=== PATIENT | male | born 1985 | race Caucasian/White ===

== ENCOUNTER 2017-03-10 23:20 | Inpatient (IN) | payer OTHER, MEDICAID ==
[~2017-03-10] VITALS: Ht 165.1 cm; Wt 64.5 kg
--- NOTE | 2017-03-11 00:38 | PD ---
HPI Chief Complaint: Psychiatric Symptoms Time Seen by Provider: 00:37 Travel History International Travel<30 days: No Contact w/Intl Traveler<30days: No Traveled to known affect area: No History of Present Illness HPI 31-year-old male with history of PTSD, presents to emergency department under [place] act for psychiatric evaluation. Patient states he got in argument with his brother. He tells me that him and his brother had never gotten along. He made comments that made his parents concerned that he was going to hurt his brother. He states he has no suicidal or homicidal ideations. He states his brother "just annoys him." States that he is supposed be taking his medication for PTSD but does not take it regularly. He took 1 dose yesterday. Denies any illicit drug use. No other symptoms to report at this time. [facility] Past Medical History Diabetes: No Diminished Hearing: Yes (LEFT EAR, STATES " I HAVE A HEARING AID BUT DON'T USE IT") Social History Alcohol Use: No (DRINKS ALCOHOL RARELY) Tobacco Use: No Allergies-Medications (Allergen,Severity, Reaction): Coded Allergies: haloperidol (Verified Allergy, Severe, 03/11/17) DYSTONIC REACTION sulfamethoxazole (Unverified Allergy, Severe, 01/28/17) trimethoprim (Unverified Allergy, Severe, 01/28/17) Reported Meds & Prescriptions Reported Meds & Active Scripts Active No Active Prescriptions or Reported Medications Review of Systems Except as stated in HPI: all other systems reviewed are Neg Physical Exam Narrative GENERAL: Well-nourished male patient, in no acute distress SKIN: Focused skin assessment warm/dry. HEAD: Atraumatic. Normocephalic. EYES: Pupils equal and round. No scleral icterus. No injection or drainage. ENT: No nasal bleeding or discharge. Mucous membranes pink and moist. NECK: Trachea midline. No JVD. CARDIOVASCULAR: Tachycardic rate and rhythm. No murmur appreciated. RESPIRATORY: No accessory muscle use. Clear to auscultation. Breath sounds equal bilaterally. GASTROINTESTINAL: Abdomen soft, non-tender, nondistended. Hepatic and splenic margins not palpable. MUSCULOSKELETAL: No obvious deformities. No clubbing. No cyanosis. No edema. NEUROLOGICAL: Awake and alert. No obvious cranial nerve deficits. Motor grossly within normal limits. Normal speech. Data Data Last Documented VS Vital Signs Date Time Temp Pulse Resp B/P (MAP) Pulse Ox O2 Delivery O2 Flow Rate FiO2 03/11/17 01:11 117 20 134/91 (105) Orders Orders Psych Screen (03/10/17 23:54) Complete Blood Count With Diff (03/11/17 00:38) Basic Metabolic Panel (Bmp) (03/11/17 00:38) Drug Screen, Random Urine (03/11/17 00:38) Alcohol (Ethanol) (03/11/17 00:38) Labs Laboratory Tests Test 03/11/17 00:00 White Blood Count 6.9 TH/MM3 Red Blood Count 4.73 MIL/MM3 Hemoglobin 14.8 GM/DL Hematocrit 43.1 % Mean Corpuscular Volume 91.1 FL Mean Corpuscular Hemoglobin 31.4 PG Mean Corpuscular Hemoglobin Concent 34.4 % Red Cell Distribution Width 12.8 % Platelet Count 246 TH/MM3 Mean Platelet Volume 8.6 FL Neutrophils (%) (Auto) 60.9 % Lymphocytes (%) (Auto) 27.1 % Monocytes (%) (Auto) 10.9 % Eosinophils (%) (Auto) 0.5 % Basophils (%) (Auto) 0.6 % Neutrophils # (Auto) 4.2 TH/MM3 Lymphocytes # (Auto) 1.9 TH/MM3 Monocytes # (Auto) 0.8 TH/MM3 Eosinophils # (Auto) 0.0 TH/MM3 Basophils # (Auto) 0.0 TH/MM3 CBC Comment DIFF FINAL Differential Comment Blood Urea Nitrogen 11 MG/DL Creatinine 1.17 MG/DL Random Glucose 128 MG/DL Calcium Level 9.1 MG/DL Sodium Level 136 MEQ/L Potassium Level 3.0 MEQ/L Chloride Level 101 MEQ/L Carbon Dioxide Level 25.4 MEQ/L Anion Gap 10 MEQ/L Estimat Glomerular Filtration Rate 73 ML/MIN Ethyl Alcohol Level LESS THAN 3 MG/DL MDM Medical Decision Making Medical Screen Exam Complete: Yes Emergency Medical Condition: Yes Medical Record Reviewed: Yes Differential Diagnosis Mood disorder versus personality disorder versus adjustment reaction disorder Narrative Course 31-year-old male presents to emergency department under [place] act for psychiatric evaluation. Patient appears without distress. He is tachycardic initially, but heart rate normalizes by the time I evaluate him. Lab work is without acute concern. Patient does have hypokalemia 3.0. This will be repleted in the emergency department. Patient is medically cleared to undergo psychiatric screening for further evaluation and disposition. Mental health screening discussed with the patient. Psychiatric screen ordered. Diagnosis Primary Impression: Adjustment reaction Qualified Codes: F43.25 - Adjustment disorder with mixed disturbance of emotions and conduct Additional Impression: Hypokalemia Scripts No Active Prescriptions or Reported Meds Condition: Stable Mariela Barron Mar 11, 2017 00:38
[2017-03-11 01:02] LABS: AUTOMATED NEUTROPHIL # 4.2 TH/MM3 (1.8-7.7); BASOPHIL % 0.6 % (0.0-2.0); EOSINOPHIL % 0.5 % (0.0-4.0); HEMATOCRIT 43.1 % (39.0-51.0); HEMO FLAGS DIFF FINAL; LYMPH % 27.1 % (9.0-44.0); LYMPHOCYTE # 1.9 TH/MM3 (1.0-4.8); MEAN CELL VOLUME 91.1 FL (80.0-100.0); MEAN CORPUSCULAR HEMOGLOBIN 31.4 PG (27.0-34.0); MEAN CORPUSCULAR HGB CONC 34.4 % (32.0-36.0); MONO % 10.9 % (0.0-8.0); NEUT % 60.9 % (16.0-70.0); PLATELET COUNT 246 TH/MM3 (150-450); RED BLOOD COUNT 4.73 MIL/MM3 (4.50-5.90); RED CELL DISTRIBUTION WIDTH 12.8 % (11.6-17.2); WHITE BLOOD COUNT 6.9 TH/MM3 (4.0-11.0)
[2017-03-11 01:11] VITALS: BP 134/91; PULSE 117; RESP 20
[2017-03-11 01:20] LABS: ANION GAP 10 MEQ/L (5-15); BICARBONATE 25.4 MEQ/L (21.0-32.0); BLOOD UREA NITROGEN 11 MG/DL (7-18); CHLORIDE 101 MEQ/L (98-107); GLOMERULAR FILTRATION RATE 73 ML/MIN (>89); SODIUM (NA) 136 MEQ/L (136-145)
[2017-03-11 01:38] LABS: ALCOHOL LESS THAN 3 MG/DL (0-5)
[2017-03-11] MEDS ORDERED: POTASSIUM CHLORIDE 10 MEQ CONTROLLED RELEASE TAB PO ONE (05:30)
[2017-03-11 05:46] VITALS: BP 148/85; PULSE 104; RESP 19
[2017-03-11 10:11] VITALS: BP 130/87; PULSE 92; RESP 20; O2SAT 99
[2017-03-11 10:53] VITALS: BP 130/87; PULSE 92; RESP 20; O2SAT 99
[2017-03-11 11:20] VITALS: BP 136/83; PULSE 86; RESP 18; TEMP 98.5
[2017-03-11] MEDS ORDERED: MAGNESIUM HYDROXIDE SUSP 30 ML CUP PO PRN (12:00)
[2017-03-11] MEDS ORDERED: LORazepam 1 MG TAB PO PRN (12:00)
[2017-03-11] MEDS: ARIPiprazole 5 MG TAB PO SCH (12:00)
[2017-03-11] MEDS ORDERED: LORazepam 2 MG/ML VIAL IM PRN (12:00)
[2017-03-11] MEDS ORDERED: ACETAMINOPHEN 325 MG TAB PO PRN (12:00)
[2017-03-11] MEDS ORDERED: ALUMINUM/MAGNESIUM/SIMETH 30 ML CUP PO PRN (12:00)
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
[2017-03-11 18:00] VITALS: BP 136/82; PULSE 95; RESP 18; TEMP 98.2; O2SAT 100
[2017-03-12 05:18] VITALS: BP 116/61; PULSE 66; RESP 16; TEMP 97.8; O2SAT 97
[2017-03-12 10:30] LABS: ANION GAP 3 MEQ/L (5-15); BICARBONATE 33.3 MEQ/L (21.0-32.0); BLOOD UREA NITROGEN 5 MG/DL (7-18); CHLORIDE 102 MEQ/L (98-107); GLOMERULAR FILTRATION RATE 71 ML/MIN (>89); POTASSIUM 3.8 MEQ/L (3.5-5.1); SODIUM (NA) 138 MEQ/L (136-145)
[2017-03-12 10:41] LABS: FREE T4 1.13 NG/DL (0.76-1.46); HDL CHOLESTEROL 61.2 MG/DL (40.0-60.0); LDL CHOLESTEROL 77 MG/DL (0-99)
[2017-03-12] MEDS: ARIPiprazole 5 MG TAB PO SCH (11:28)
[2017-03-12 15:48] LABS: HEMOGLOBIN A1b 0.8 %; HEMOGLOBIN Ao 86.2 %; HEMOGLOBIN F 0.8 %; HEMOGLOBIN LA1C 1.8 %; HEMOGLOBIN P3 3.5 %
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
[2017-03-12 17:49] VITALS: BP 136/72; PULSE 105; RESP 18; TEMP 99.1; O2SAT 98
[2017-03-12 21:29] VITALS: BP 136/72; PULSE 105; RESP 18; TEMP 99.1; O2SAT 98
[2017-03-13 06:04] VITALS: BP 117/64; PULSE 94; RESP 16; TEMP 97.8; O2SAT 98
[2017-03-13] MEDS: ARIPiprazole 5 MG TAB PO SCH ×2 (12:00→12:28)
[2017-03-13 16:51] VITALS: BP 111/75; PULSE 76; RESP 17; TEMP 98.5; O2SAT 100
[2017-03-14 05:58] VITALS: BP 112/61; PULSE 74; RESP 18; TEMP 97.1; O2SAT 96
[2017-03-14] MEDS: ARIPiprazole 5 MG TAB PO SCH (12:00)
[2017-03-15 05:40] VITALS: BP 115/61; PULSE 68; RESP 16; TEMP 97.9; O2SAT 99
[2017-03-15] MEDS: ARIPiprazole 5 MG TAB PO SCH (12:00)
[2017-03-15 17:46] VITALS: BP 117/66; PULSE 87; RESP 17; TEMP 97.9; O2SAT 99
[2017-03-16 06:30] VITALS: BP 135/84; PULSE 84; RESP 16; TEMP 98.1; O2SAT 97
[2017-03-16] MEDS: ARIPiprazole 5 MG TAB PO SCH (12:00)
[2017-03-16] MEDS ORDERED: PADIMATE (CHAPSTICK) 4.5 GM TUBE TOPICAL PRN (14:00)
[2017-03-16 17:52] VITALS: BP 123/68; PULSE 87; RESP 20; TEMP 97.8; O2SAT 98
[2017-03-17 06:33] VITALS: BP 106/69; PULSE 70; RESP 18; TEMP 97.9
[2017-03-17] MEDS: ARIPiprazole 5 MG TAB PO SCH (12:00)
[2017-03-17 18:10] VITALS: BP 105/69; PULSE 76; RESP 17; TEMP 97.1; O2SAT 98
[2017-03-18 05:29] VITALS: BP 118/75; PULSE 77; RESP 18; TEMP 97.3; O2SAT 86
[2017-03-18] MEDS: ARIPiprazole 5 MG TAB PO SCH (12:00)
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
[2017-03-18 16:59] VITALS: BP 120/81; PULSE 78; RESP 17; TEMP 98; O2SAT 99
[2017-03-19 06:22] VITALS: BP 130/79; PULSE 80; RESP 18; TEMP 97.8
[2017-03-19] MEDS: ARIPiprazole 5 MG TAB PO SCH ×2 (11:32→12:45)
[2017-03-19 18:40] VITALS: BP 125/72; PULSE 70; RESP 16; TEMP 98.1; O2SAT 99
[2017-03-20 05:52] VITALS: BP 123/71; PULSE 76; RESP 16; TEMP 98; O2SAT 98
[2017-03-20] MEDS: ARIPiprazole 5 MG TAB PO SCH (11:26)
[2017-03-20 18:00] VITALS: BP 132/79; PULSE 66; RESP 17; TEMP 97.9; O2SAT 100
[2017-03-20] MEDS ORDERED: TEMAZEPAM 15 MG CAP PO PRN (18:30)
[2017-03-21 06:20] VITALS: BP 115/68; PULSE 80; RESP 18; TEMP 98; O2SAT 98
[2017-03-21] MEDS: ARIPiprazole 5 MG TAB PO SCH (12:15)
[2017-03-21] MEDS ORDERED: BENZTROPINE MESYLATE 2 MG TAB PO PRN (17:15)
[2017-03-21 18:26] VITALS: BP 117/68; PULSE 80; RESP 18; TEMP 98.4; O2SAT 98
[2017-03-22 05:45] VITALS: BP 105/57; PULSE 16; RESP 16; TEMP 98.7; O2SAT 97
[2017-03-22] MEDS ORDERED: ARIPiprazole 5 MG TAB PO SCH (12:00)
[2017-03-22] MEDS ORDERED: [UNRECOGNIZED DRUG - REMARK] PO SCH (12:00)
[2017-03-22 17:05] VITALS: BP 128/78; PULSE 70; RESP 18; TEMP 98.5; O2SAT 98
[2017-03-23 06:19] VITALS: BP 120/62; PULSE 79; RESP 18; TEMP 98.1; O2SAT 99
[2017-03-23] MEDS: ARIPiprazole 10 MG TAB PO SCH ×3 (11:09→11:47)
[2017-03-23 18:00] VITALS: BP 119/72; PULSE 75; RESP 16; TEMP 98.2; O2SAT 99
[2017-03-24 06:02] VITALS: BP 115/70; PULSE 66; RESP 18; TEMP 97.9; O2SAT 98
[2017-03-24] MEDS: ARIPiprazole 10 MG TAB PO SCH (12:00)
[2017-03-24 18:52] VITALS: BP 130/80; PULSE 90; RESP 18; TEMP 98.2; O2SAT 96
[2017-03-25 05:30] VITALS: BP 102/59; PULSE 73; RESP 18; TEMP 97.9; O2SAT 99
[2017-03-25] MEDS: ARIPiprazole 10 MG TAB PO SCH (12:12)
[2017-03-25 18:00] VITALS: BP 148/89; PULSE 78; RESP 17; TEMP 98.6; O2SAT 97
[2017-03-26 05:43] VITALS: BP 115/63; PULSE 76; RESP 18; TEMP 97.4; O2SAT 98
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
--- NOTE | 2017-03-26 09:49 | PD.TTN ---
Patient Problems 1. Discharge planning 2. Medication compliance 3. Knowledge deficit 4. Lack of coping skills Progress Toward Goals Provider Present: Dr. Edith Rosen Provider Input: Dr. Rosen met with patient and his parents to discuss progress, medication management, discharge plan, and follow-up care. Dr. Rosen expressed concerns regarding patient remaining medication comliant following discharge. Patient reported that he understands his need for medication and will remain compliant. Patient's parents reported their belief that the patient will remain compliant and advocated for patient's discharge. Psychiatric Counselors Present: NORBERTO Rocha, [facility] Psych Therapist Input: Counselor reproted the patient remains compliant with treatment and would like to be discharged home. Pricilant has been attending groups and interacting appropriately with staff and peers. Discharge Plan Other ([facility]) Documentation Scribe: NORBERTO Rocha Date Resolved: Mar 25, 2017 Claudine Gibbons Mar 26, 2017 09:49
[2017-03-26] MEDS: ARIPiprazole 10 MG TAB PO SCH (12:26)
--- NOTE | 2017-03-26 16:18 | RADRPT ---
EXAM DATE/TIME: 03/26/2017 15:52 [place] COMPARISON: No previous studies available for comparison. INDICATIONS : Right hand pain, denies injury MEDICAL HISTORY : None. SURGICAL HISTORY : None. ENCOUNTER: Initial ACUITY: 1 day PAIN SCORE: 6/10 LOCATION: Right hand FINDINGS: Two view examination of the right hand demonstrates no soft tissue swelling, dislocation, or fracture . The joint spaces are maintained. Bony mineralization is normal. CONCLUSION: No acute disease. Nas Ramos MD on March 26, 2017 at 16:16 Board Certified Radiologist. This report was verified electronically.
[2017-03-26 17:49] VITALS: BP 119/73; PULSE 72; RESP 17; TEMP 98.1; O2SAT 99
[2017-03-27 06:24] VITALS: BP 117/57; PULSE 70; RESP 16; TEMP 97.4
[2017-03-27] MEDS: ARIPiprazole 10 MG TAB PO SCH (12:05)
[2017-03-27] MEDS ORDERED: Benztropine PO (14:45)
[2017-03-27] MEDS ORDERED: ARIP1TAB12 PO (14:45)
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
== END 2017-03-27 15:45 | disposition home or self-care (01) | DRG 884 ==
LOC: NEPJ 23:20 → NEDA 03-11 06:40 → H260 03-11 11:14
PROVIDERS: ADMIT Psychiatry & Neurology Psychiatry; ATTEND Psychiatry & Neurology Psychiatry
DX: F06.2 Psychotic disorder with delusions due to known physiological condition (principal); Z91.14 Patient's other noncompliance with medication regimen; E87.6 Hypokalemia; F06.30 Mood disorder due to known physiological condition, unspecified; F43.10 Post-traumatic stress disorder, unspecified; Z91.19 Patient's noncompliance with other medical treatment and regimen; H91.92 Unspecified hearing loss, left ear; Z87.820 Personal history of traumatic brain injury; Z88.3 Allergy status to other anti-infective agents
CPT/HCPCS: 73120; 80048; 80061; 80307; 83036; 84439; 84443; 85025